=== PATIENT | female | born 1955 | race Caucasian/White ===

== ENCOUNTER → 2023-05-23 09:11 | Outpatient (REF) | payer MEDICARE, OTHER, SELFPAY | LOC: HWWDC 09:11 | PROVIDERS: ATTENDING PHYSICIAN Family Medicine; REFERRING PHYSICIAN Obstetrics & Gynecology | DX: Z12.31 Encounter for screening mammogram for malignant neoplasm of breast (principal) | CPT/HCPCS: 77063; 77067 ==

== ENCOUNTER → 2024-07-19 08:36 | Outpatient (REF) | payer MEDICARE, OTHER, SELFPAY | LOC: HWWDC 08:36 | PROVIDERS: ATTENDING PHYSICIAN Internal Medicine Rheumatology; FAMILY PHYSICIAN Family Medicine; REFERRING PHYSICIAN Obstetrics & Gynecology | DX: Z12.31 Encounter for screening mammogram for malignant neoplasm of breast (principal); M81.0 Age-related osteoporosis without current pathological fracture | CPT/HCPCS: 77063; 77067; 77080 ==

== ENCOUNTER → 2024-12-02 13:05 | Outpatient (REF) | payer MEDICARE, OTHER, SELFPAY ==
--- NOTE | 2024-10-29 08:48 | PN.DIAED02 ---
Referral
DSME Class Series Code: [id number]
Referred For: Diabetes Self-Management Training, Medical Nutrition Therapy, Self-Blood Glucose Monitoring, Long-Term Complication Instruction, Accute Complication Instruction, Continuous Glucose Monitoring, Medication management, Care Coordination,
Disease Management
PHI Release Authorization Form Signed: Yes
Demographic
Patient's primary language-: Brazilian
Education: College degree
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
Hours Worked/Week: > 40
Shift: Day
- Social
Primary Support Person: Self & spouse, Family
Primary Care Takers: Self & spouse, Family
Living Arrangements: Self & spouse, Family
- Learning Methods
Preferred Method: Reading, Lecture/audio, Hands-on demonstration, Video, Group discussion
Barriers to Learning: None
Glycemic Control
- Blood Glucose Monitoring Assessment
Blood glucose monitoring at home: No
- Ketone Monitoring Assessment
Patient monitoring ketone: No
- Hyperglycemia Assessment
Experiences Hyperglycemia: No
Hitory of DKA/HHS: No
- Hypoglycemia Assessment
Patient experiences hypoglycemia: No
- Blood Glucose Monitoring Results
Source: meter (143 2 hour PP )
- Hemoglobin A1c
Date: 10/18/24
A1C Percentage (%): 6.5
Medical History of Diabetes
Family Diabetes History: Father, Grandfather
Previous Diabetes Education: No
Previous visit with Dietitian: No
Complications/Comorbidity/Specialist: Autoimmune (ULCERATIVE COLITIS: MESALAMINE 1.2 G 4/DAY; HYPOTHYROID: LEVOTHYROXINE 100 MCG QD), Gastrointestinal disease (OMEPRAZOLE 20 MG QD, PEPCID 20 MG QD), Hypertension (HCTZ 25 MG AM), Metabolic (DM2 - no
meds), Pulmonary disease (ASTHMA: SINGULAIR 10 MG QD, FEXOFENADINE 180 MG QD), STI / other infections (RASH: CLOBETASOL PROPIONATE (0.05% CREAM) BID, FLUCONAZOLE 200 MG QD, METROGEL 1% QD, PIMECROLIMUS 1% BID), Other / symptoms (OSTEOPENIA: PROLIA
SQ as directed; DEPRESSION: NORTRIPTYLINE 10 MG 4 QD)
Measures
- Anthropometrics
Height: 4 ft 11 in
Actual Weight: 138 lb
- Blood Pressure / Pulse
Blood pressure: 127/75
Pulse: 99
- Diabetes Management
Medical Management for Diabetes: Complete physical exam (10/23/2024), Dental exam (06/18/2024), Dilated eye exam (06/26/2024), Other (COVID VAX: 06/04/20, 01/29/21, 11/01/21, 02/04/22)
Self-Care
- Tobacco Usage
Do you now, or have you ever smoked?: Never smoked
- Alcohol & Drugs Usage
Drinks Alcohol: Yes
Amount/day: Other (1/MONTH)
- Meals & Dining
Meals & Dining: Patient skips meals: No, Food Intolerance / Allergy: No
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
Primary Medical Doctor: Self
Dining Out Frequency: 1-3x per week
- Physical Activity
Physical Limitation: No
Patient participates in physical Activity: Yes
Activity Types: walking
Duration: 21-30 minutes
Frequency: 3-5x per week (15-30)
- Patient-Self Assessment
Diabetes Knowledge: Fair
Feelings About Diabetes: Acceptance
General Health: Fair
Importance of Health: Extremely
Stress Level: High
Barriers to Diabetes Management: Nothing
Depression Survey Score: 1
- Diabetes Identification
Carries Diabetes Identification: No
Diabetes Identification Information Provided: Yes
Care Plan
- Education Needs
Patient Education Needs: Diabetes disease process, Chronic complications, Acute complications, Medication, Monitoring, Physical activity, Psychosocial Adjustment, Nutritional management, Goal setting & problem solving
Recommended Diabetes Training Program based on assessment: Outpatient Diabetes Education Program
- Plan of Care
Plan of Care:
10/28/2024
Met with participant today for registration and initiation of Diabetes Self-management. Pt was recommended by his PCP due new diagnosis of T2D IN august 2024. Her HbA1c is 6.5%, previous HbA1c was 6.6%. She is not on any medication.
We reviewed the complications of diabetes and emphasized the importance of physical exercise. She follows a walking program online, may walk 10-30 min a day depending on the program. 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 She also has ulcerative colitis (since age 19) and takes Mesalamine 1.2 g 4/day. She has periods of remission and exacerbation, when in exacerbation has fruit and vegetable intolerance and eats carbohydrates for GI comfort. I
mentioned the low FODMAP diet may be helpful, she plans to contact our RD for additional education.
She does not currently monitor her glucose, but states that she 'should'. I provided sample of Cont[employer] Next glucose meter and supplies. Demonstrated how to monitor glucose and recommended he check once a day in the AM and alternate 2 hours after
meals and review with provider. Her glucose today was 143 mg/dL 2 hours post prandial. Reviewed fasting and 2 hour PP goals and A1c goals. She has a PCP follow up appointment today, will discuss ordering additional testing supplies with her PCP.
She has already contacted her insurance company regarding coverage for DSME class, states this is subject to her deductible. She has office phone # and will outreach with any additional questions or concerns.
--- NOTE | 2024-10-29 09:15 | PN.DIAED04 ---
Education Record
- Education Record
Class Attended: Other (INITIAL DSME CONSULTATION)
DSME Class Series Code: [id number]
Instructor: Nurse Practitioner
Pre-Program Knowledge: Needs review / Assistance
Pre-Test Score (%): 84
Goals
- Goal 1
Being Active: Exercise 30 minutes-5 times per week
Goals To Be Evaluated: Exercise 30 mins-5x/week
- Goal 2
Healthy Eating: Make better food choices
Goals To Be Evaluated: Make better food choices
- Goal 3
Monitoring: Follow monitoring schedule
Goals To Be Evaluated: Follow monitoring times
--- NOTE | 2024-12-04 13:42 | PN.DIAED14 ---
This is to notify you that your patient with diabetes, ANDI NGO ( 1955), has enrolled in our diabetes self-management classes that are being held at [facility].
These classes will include an introduction to diabetes, diet, medication, exercise and prevention of complications. At the end of our class series, you will receive a report of your patient's participation and progress for your records.
Please contact me at the Diabetes Center, , if there is any particular information regarding your patient that might be helpful to me.
Sincerely,
[facility], [facility]
--- NOTE | 2024-12-04 13:42 | PN.DIAED04 ---
Education Record
- Education Record
Class Attended: Class 1
DSME Class Series Code: [id number]
Instructor: Registered Nurse (Lorena Schmitt RN)
Class Curriculum:
Outpatient Diabetes Education Program:
Class 1 (120 minutes)
Describe the diabetes disease process and treatment options
Diabetes management
Develop personal strategies to promote health and behavior change
Integrate psychosocial adjustment for daily living
Monitor blood glucose and other parameters. Interpret and use the results for self-management decision making
Prevent, detect, and treat acute complications
Class Length (mins): 120
Post-Class 1 Test Score (%): 100
== END ==
LOC: DES 13:05
PROVIDERS: ATTENDING PHYSICIAN Family Medicine
DX: E11.8 Type 2 diabetes mellitus with unspecified complications (principal)
CPT/HCPCS: 99078

== ENCOUNTER → 2024-12-09 09:57 | Outpatient (REF) | payer MEDICARE, OTHER, SELFPAY ==
--- NOTE | 2024-12-10 10:11 | PN.DIAED04 ---
Education Record
- Education Record
Class Attended: Class 2
DSME Class Series Code: [id number]
Instructor: Registered Dietitian (Rozina Prado, RD, LDN, CDE)
Class Curriculum:
Outpatient Diabetes Education Program:
Class 2 (120 minutes)
Incorporate nutritional management into lifestyle
Understanding nutritional value
Understanding carbohydrate counting
Class Length (mins): 120
== END ==
LOC: DES 09:57
PROVIDERS: ATTENDING PHYSICIAN Family Medicine
DX: E11.8 Type 2 diabetes mellitus with unspecified complications (principal)
CPT/HCPCS: 99078

== ENCOUNTER → 2024-12-23 09:35 | Outpatient (REF) | payer MEDICARE, OTHER, SELFPAY ==
--- NOTE | 2024-12-25 11:57 | PN.DIAED04 ---
Education Record
- Education Record
Class Attended: Class 4
DSME Class Series Code: [id number]
Instructor: Nurse Practitioner (VIRGEN eWlch)
Class Curriculum:
Outpatient Diabetes Education Program:
Class 4 (120 minutes)
Develop personal strategies to promote health and behavior change
Incorporate physical activity into lifestyle
Utilize medications safety for maximum therapeutic effectiveness
Understand different medication/insulin mechanism of action
Preparing for travel
Class Length (mins): 120
Post-Class 4 Test Score (%): 100
== END ==
LOC: DES 09:35
PROVIDERS: ATTENDING PHYSICIAN Family Medicine
DX: E11.8 Type 2 diabetes mellitus with unspecified complications (principal)
CPT/HCPCS: 99078